=== PATIENT | male | born 1975 | race Caucasian/White ===

== ENCOUNTER → 2018-10-28 | Day surgery (SDC) | payer OTHER ==
[~2018-10-28] VITALS: Ht 180.3 cm; Wt 86.2 kg
[~2018-10-28] MED LIST: AMLODIPINE BESY10 MG PO; IBUPROFEN 800800 M1 PO; LISINOPRIL20 MG PO; LYRICA 50 MG50 MG PO; MULTIVITAMINS PO; VITAMIN E400 UNIT PO
[2018-10-28 07:22] VITALS: BP 140/86
--- NOTE | 2018-10-28 08:42 | EKG ---
[place] [address] [facility] [place] [address] ELECTROCARDIOGRAM REPORT Name: CHRISTIAN BENAVIDEZ Room #: REG [facility].#: [id number] ������������������ Admission: 10/28/18 ������������������ Attend Phys: Bryce Moser DPM Discharge: ������������������ Date of : 75 Report #: [id number] ����������������������������������������������������������������� [id number] THIS REPORT FOR: //name// [facility] Test Date: 2018-10-28 Test Time: 06:50:53 Pat Name: CHRISTIAN BENAVIDEZ Department: Room: Gender: M Product Support Analyst: KAYLEY : 1975 Requested By: Bryce Moser Order Number: [id number] MD: Srinivas Freeman Measurements Intervals [place] Rate: 99 P: AR: QRS: 6 QRSD: 94 T: 36 QT: 327 QTc: 420 Interpretive Statements Sinus rhythm No significant abnormality No previous ECG available for comparison Electronically Signed On 10-28-2018 8:42:42 CDT by Srinivas Freeman [email or web address] ��������������������������������������������� <ELECTRONICALLY SIGNED> ���������������������������������������� By: Srinivas Freeman MD, [facility] ��������������������������������������������� 10/28/18 0842 0650 0650 Srinivas Freeman MD, FAC /EPI
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
== END | disposition home or self-care (01) ==
LOC: OR 05:26
DX: M20.41 Other hammer toe(s) (acquired), right foot (principal); M20.42 Other hammer toe(s) (acquired), left foot; G62.9 Polyneuropathy, unspecified; I10 Essential (primary) hypertension; F17.210 Nicotine dependence, cigarettes, uncomplicated; Z98.890 Other specified postprocedural states; Z79.899 Other long term (current) drug therapy
CPT/HCPCS: 50010; 50101; 50386; 55430; 56526; 56871; 57091; 57178; 62110; 62900; 70005